=== PATIENT | male | born 1950 | race Caucasian/White ===

== ENCOUNTER → 2017-10-03 | Outpatient (CLI) | payer MEDICARE, BC ==
[~2017-10-03] MED LIST: ALBU2.5V36 INH; ANTACID; ASP325 PO; ASPI81TA94 PO; AZIT-1 PO; BENZ200C15 PO; CALC-845 PO; CIP500 PO; FEN145 PO; FENO145T36 PO; GLUC-100 PO; ITRA100C9 PO; LISI-347 PO; LOM PO; LOR7.5/325 PO; LOSA-54 PO; METO50TA19 PO; METR-1 PO; METR45GE7 TOP; MULT-772 PO; OMEG-26 PO; OXYC-688 PO; PAN20 PO; PAN40 PO; PANT40TA65 PO; PER PO; PRED20TA6 PO; SILD100T59 PO; TADA20TA33 PO; [UNRECOGNIZED DRUG - OTHER]
--- NOTE | 2017-10-03 09:27 | RADIOLOGY IMAGING REPORT ---
FACILITY: [facility] PATIENT NAME: Catrachito Gonzalez : 1950 MR: [id number] V: [id number] EXAM DATE: ORDERING PHYSICIAN: JJ RICO TECHNOLOGIST: Location: [facility] - [place], [place] Patient: Catrachito Gonzalez : 1950 Visit/Account:[id number] Date of Sevice: 10/03/2017 Exam type: CHEST PA AND LAT History: Cough Comparison: None. Findings: Lungs are hyperinflated with some chronic appearing interstitial changes. There is no focal infiltra te, pleural effusion or pneumothorax. Heart size is upper limits of normal. The osseous structures are unremarkable. IMPRESSION: 1. Pulmonary hyperinflation but no acute cardiopulmonary disease. Report Dictated By: Catrachito Gonzales MD at 10/03/2017 9:21 AM Report E-Signed By: Catrachito Gonzales MD at 10/03/2017 9:22 AM [id number]
== END ==
LOC: RAD 08:44
PROVIDERS: ATTEND Nurse Practitioner Primary Care
DX: R91.8 Other nonspecific abnormal finding of lung field (principal)
CPT/HCPCS: 71046

== ENCOUNTER → 2018-01-16 | Outpatient (CLI) | payer MEDICARE, BC ==
[~2018-01-16] MED LIST changes: +AMOX-559 PO; +ASPI-1471 PO; +ATOR20TA65 PO; +CALC60OI2 TOP; +CALC625T57 PO; +FLUT16SP19 NS; +METO100T20 PO; +PNEI IJ
[2018-01-16 12:38] LABS: PLATELET COUNT, AUTOMATED 245 K/uL (150-450)
== END ==
LOC: LAB 12:11
PROVIDERS: ATTEND Family Medicine
DX: I10 Essential (primary) hypertension (principal)
CPT/HCPCS: 36415; 82040; 82247; 82310; 82374; 82435; 82565; 82947; 84075; 84132; 84155; 84295; 84450; 84460; 84520; 85025

== ENCOUNTER → 2018-10-10 | Outpatient (CLI) | payer MEDICARE, BC ==
[~2018-10-10] MED LIST changes: +AMLO-125 PO; +AMLO-127 PO; +CARV20CP PO; +FLU180SY11 IM; +PANT20TA27 PO
[2018-10-10 09:25] LABS: PLATELET COUNT, AUTOMATED 227 K/uL (150-450)
== END ==
LOC: LAB 09:10
PROVIDERS: ATTEND Family Medicine
DX: Z12.5 Encounter for screening for malignant neoplasm of prostate (principal); I10 Essential (primary) hypertension
CPT/HCPCS: 36415; 85025; G0103; 82040; 82247; 82310; 82374; 82435; 82565; 82947; 84075; 84132; 84153; 84155; 84295; 84450; 84460; 84520

== ENCOUNTER → 2018-11-13 | Outpatient (CLI) | payer MEDICARE, BC ==
--- NOTE | 2018-11-13 10:02 | RADIOLOGY IMAGING REPORT ---
FACILITY: [facility] PATIENT NAME: Catrachito Gonzalez : 1950 MR: [id number] V: [id number] EXAM DATE: ORDERING PHYSICIAN: CASSANDRA DOUGLAS TECHNOLOGIST: Location: [facility] Patient: Catrachito Gonzalez : 1950 Visit/Account:[id number] Date of Sevice: 11/13/2018 AORTA Indication: Screening for abdominal aortic aneurysm in a patient with a history of smoking.. Procedure: There has been satisfactory transabdominal ultrasonic evaluation of the aorta. Comparison study:None Procedure: There has been satisfactory grayscale ultrasonic evaluation of the aorta and iliac vessels . Attention was focused on size of the aorta. Findings: The infrarenal abdominal aorta measures 2.5 cm x 2.7 cm in its greatest AP and transverse d iameter. There are minimal changes of atherosclerosis visualized. The right common iliac artery measu res 1.1 cm in diameter and the left common iliac artery measures 0.9 cm in diameter. Flow is identified in the IVC. There is a small cortical cyst in the left kidney that measures 1.5 x 1.8 cm in size. IMPRESSION: 1. No findings of an abdominal aortic aneurysm. 2. Small cortical cysts in the midportion of the left kidney laterally measuring 1.5 x 1.8 cm in siz e. Report Dictated By: Kermit Martinez MD at 11/13/2018 9:56 AM Report E-Signed By: Kermit Martinez MD at 11/13/2018 9:58 AM WSN:[id number]
== END ==
LOC: US 01:08
PROVIDERS: ATTEND Family Medicine
DX: Z87.891 Personal history of nicotine dependence (principal)
CPT/HCPCS: 93979

== ENCOUNTER → 2018-12-30 | Outpatient (CLI) | payer MEDICARE, BC ==
[~2018-12-30] MED LIST changes: +CARV40CP PO; +SCOP1PAT2 ASDIRECTED
== END ==
LOC: LAB 16:19
PROVIDERS: ATTEND Family Medicine
DX: I10 Essential (primary) hypertension (principal)
CPT/HCPCS: 36415; 82310; 82374; 82435; 82565; 82947; 84132; 84295; 84443; 84520